=== PATIENT | female | born 1970 | race Caucasian/White ===

== ENCOUNTER 2017-12-20 16:21 | Emergency (ER) | payer OTHER ==
[2017-12-20] MEDS ORDERED: ONDANSETRON DISINTEGRATING 4 MG TAB PO ONE (16:43)
[2017-12-20] MEDS ORDERED: NS 1,000 ML IV ONE (17:05)
[2017-12-20] MEDS ORDERED: METOCLOPRAMIDE 10 MG/2 ML VIAL IVP ONE (17:23)
[2017-12-20] MEDS ORDERED: METOCLOPRAMIDE 10 MG/2 ML VIAL ONE (17:24)
[2017-12-20 17:29] VITALS: BP 147/102
--- NOTE | 2017-12-20 18:20 | EDPHY ---
H & P Time Seen by Provider: 12/20/17 17:01 HPI/ROS: CHIEF COMPLAINT: Headache, dizziness, sinus pain HISTORY OF PRESENT ILLNESS: Patient states she has had a migraine headache secondary to sinus issues for a"long time". She states she has had good relief for her migraines with Botox injections but she has had constant sinus and vertigo for at least urine half if not longer. She states she saw her primary care doctor about 8 days ago and was started on amoxicillin guaifenesin Nasacort. She has been on Nasacort prior but was off it for about a month. She has also been treated for chronic sinus infections with antibiotics in the past. She has seen a neurologist for her vertigo and finds it meclizine does not help. She has not seen in the ENT at any time for these problems however. Today the symptoms are typical of her migraines and sinus issues. She has had no fever. She has had no nausea, vomiting, diarrhea. She does have some shortness of breath secondary to sinus drainage at times but no significant cough. No numbness, weakness. REVIEW OF SYSTEMS: Constitutional: No fever, no chills. Eyes: No discharge. ENT: No sore throat. Cardiovascular: No chest pain, no palpitations. Respiratory: No cough, no shortness of breath. Gastrointestinal: No abdominal pain, no vomiting. Genitourinary: No dysuria. Musculoskeletal: No back pain. Skin: No rashes. Neurological: Headache, dizziness. General Appearance: Alert, no distress. Eyes: Pupils equal and round no pallor or injection. ENT, Mouth: Mucous membranes moist. Respiratory: There are no retractions, lungs are clear to auscultation. Cardiovascular: Regular rate and rhythm. Gastrointestinal: Abdomen is soft and nontender, no masses, bowel sounds normal. Neurological: Awake alert, cranial nerves intact, normal strength and sensation to all 4 extremities. Normal reflexes. Skin: Warm and dry, no rashes. Musculoskeletal: Neck is supple nontender. Extremities are symmetrical, full range of motion, no edema. Psychiatric: Patient is oriented X 3, there is no agitation. Medical/surgical history: Celiac disease, . Social history: Denies tobacco or alcohol. Smoking Status: Never smoked Constitutional: Initial Vital Signs Temperature (C) 36.5 C 12/20/17 16:28 Heart Rate 99 12/20/17 16:28 Respiratory Rate 16 12/20/17 16:28 Blood Pressure 167/98 H 12/20/17 16:28 O2 Sat (%) 98 12/20/17 16:28 O2 Delivery Mode Room Air Allergies/Adverse Reactions: ibuprofen Allergy (Verified 12/20/17 16:25) Home Medications: Medication Instructions Recorded Adderall 10 MG (*) 12/20/17 Augmentin 125-31.25 mg/5 ml 12/20/17 Nasacort 12/20/17 guaiFENesin 12/20/17 Medical Decision Making ED Course/Re-evaluation: Patient treated, family back and requesting discharge. Differential Diagnosis: Differential diagnosis includes but is not limited to migraine headache, sinusitis, pseudotumor cerebrai, vertigo, meningitis. After evaluation patient with her chronic symptoms consistent with chronic sinusitis and exacerbation of migraine syndrome. No evidence of infectious process, neurologic deficit, indications for imaging or further treatment. Patient is currently on antibiotics. Strongly recommended she follow up with ENT. Understands return precautions and has PCP follow-up. Stable for discharge. - Data Points Medications Given: Discontinued Medications Diphenhydramine HCl (Benadryl Injection) 50 mg IVP EDNOW ONE Stop: 12/20/17 17:24 Last Admin: 12/20/17 17:28 Dose: 50 mg Sodium Chloride (Ns) 1,000 mls @ 0 mls/hr IV ONCE ONE PRN Reason: Wide Open Stop: 12/20/17 17:06 Last Admin: 12/20/17 17:08 Dose: 1,000 mls Metoclopramide HCl (Reglan Injection) 10 mg IVP EDNOW ONE Stop: 12/20/17 17:24 Last Admin: 12/20/17 17:28 Dose: 10 mg Ondansetron HCl (Zofran Odt) 4 mg PO EDNOW ONE Stop: 12/20/17 16:44 Last Admin: 12/20/17 16:49 Dose: 4 mg Departure - Departure Disposition: Home, Routine, Self-Care Clinical Impression: Migraine Condition: Good Instructions: Migraine Headache (ED) Additional Instructions: Follow up with her primary care physician as discussed for referral to Ear Nose and Throat. Continue your antibiotics as previously prescribed. Return to the emergency department if he developed fever, intractable vomiting, or other concerning new symptoms. Referrals: NONE *PRIMARY CARE P,. [Primary Care Provider] - As per Instructions Jaun Lyon MD [Medical Doctor] - As per Instructions
== END 2017-12-20 18:55 | disposition home or self-care (01) ==
DX: G43.909 Migraine, unspecified, not intractable, without status migrainosus (principal)
CPT/HCPCS: 96374; J1200; J2765

== ENCOUNTER 2018-02-10 15:17 | Emergency (ER) | payer OTHER ==
--- NOTE | 2018-02-10 15:55 | EDPHY ---
H & P Stated Complaint: 9 days of vaginal bleeding - Medical/Surgical History Hx Asthma: Yes Hx Chronic Respiratory Disease: No Hx Diabetes: No Hx Cardiac Disease: No Hx Renal Disease: No Hx Cirrhosis: No Hx Alcoholism: No Hx HIV/AIDS: No Hx Splenectomy or Spleen Trauma: No Other PMH: c section, sinus infection, migraine, fibroids - Social History Smoking Status: Never smoked <Masoud Merino - Last Filed: 02/10/18 16:02> <Shukri Austin - Last Filed: 02/10/18 18:47> Time Seen by Provider: 02/10/18 15:36 HPI/ROS: CHIEF COMPLAINT: Abdominal pain, vaginal cramping HISTORY OF PRESENT ILLNESS: 47-year-old female history of uterine fibroids complaining of 9 days of vaginal bleeding, passage of clots with complaints of lower abdominal pain, right greater than left. No nausea or vomiting. Bowel movements normal. No urinary abnormality. No trauma. No fever or chills. Last oral intake was dinner last evening. REVIEW OF SYSTEMS: A ten point review of systems was performed and is negative with the exception of the items mentioned in the HPI PAST MEDICAL & SURGICAL HISTORY: Uterine fibroid. Tubal ligation. SOCIAL HISTORY: Nonsmoker PHYSICAL EXAM (Prior to examination, patient consented to physical exam, hands were washed and my usual and customary physical exam procedures followed) 1) GENERAL: Well-developed, well-nourished, alert and oriented. Appears uncomfortable. 2) HEAD: Normocephalic, atraumatic 3) HEENT: Pupils equal, round, reactive to light bilaterally. Sclera anicteric. 4) NECK: Full range of motion, no meningeal signs. 5) LUNGS: Clear auscultation bilaterally, no wheezes, no rhonchi, no retractions. 6) HEART: Regular rate and rhythm, no murmur, no heave, no gallop. 7) ABDOMEN: Tender to palpation bilateral lower quadrant, right greater than left, negative peritoneal sign, 8) MUSCULOSKELETAL: Moving all extremities, no focal areas of tenderness, no obvious trauma. No peripheral edema or discoloration. 9) BACK: No CVA tenderness, no midline vertebral tenderness, no fluctuance, no step-off, no obvious trauma, no visual or palpable abnormality. 10) SKIN: No rash, no petechiae. 11) Psychiatric: Patient is oriented X 3, there is no agitation. DIFFERENTIAL DIAGNOSIS: My differential diagnosis includes, but is not limited to, acute appendicitis, acute cholecystitis, bowel obstruction, acute pancreatitis, ovarian torsion, ectopic , gastritis and urinary tract infection. The patient understands that this diagnosis is provisional and can never be 100% accurate. This is a partial list of diagnoses considered. These considerations are based on history, physical exam, past history and reassessment. (Masoud Merino) Constitutional: Initial Vital Signs Temperature (C) 36.8 C 02/10/18 15:20 Heart Rate 105 H 02/10/18 15:20 Respiratory Rate 18 02/10/18 15:20 Blood Pressure 172/90 H 02/10/18 15:20 O2 Sat (%) 100 02/10/18 15:20 O2 Delivery Mode Room Air Allergies/Adverse Reactions: ibuprofen Allergy (Verified 02/10/18 15:20) Home Medications: Medication Instructions Recorded Adderall 10 MG (*) 12/20/17 Augmentin 125-31.25 mg/5 ml 12/20/17 Nasacort 12/20/17 guaiFENesin 12/20/17 Hydrocodone/APAP 5/325 [[employer] 1 - 2 tab PO Q4H PRN #10 tab 02/10/18 5/325 (RX)] Medical Decision Making <Masoud Merino - Last Filed: 02/10/18 16:02> - Diagnostics Imaging: Discussed imaging studies w/ call center rn Radiologist <Shukri Austin - Last Filed: 02/10/18 18:47> - Diagnostics Imaging Results: Imaging Impressions Abdomen Ultrasound 02/10/18 15:52 Impression: No sonographic findings to support a clinical diagnosis of acute appendicitis. Ultrasound Pelvis Complete (Transabdominal and Endovaginal) History: Lower abdominal and pelvic pain in a 47-year-old female.. Technique: Transabdominal and endovaginal ultrasound images were obtained. Endovaginal images obtained for better evaluation of the uterine myometrium and adnexa. Color and pulsed doppler was performed to assess flow. Findings: The uterus is prominently enlarged measuring 17.2 x 11.1 x 7.9 cm. Multiple large rounded areas of heterogeneous echogenicity are seen, consistent with multiple uterine fibroids. One exophytic fibroid eccentric to the right measures 7 cm in diameter, and correlates to the patient's area of pain. Flow is documented to both ovaries. There is a small amount of fluid seen in the cul-de-sac. Impression: 1. Prominently enlarged fibroid uterus. If symptomatology is persistent, fibroid embolization could be considered. Pelvic MRI would be suggested for pretreatment assessment. 2. Exophytic fibroid to the right accounts for an area of symptomatology. 3. See above report for additional findings. Results called and discussed with Jaun Merino PA-C on February 10, 2018 at 1720 hours . Pelvic/Renal Ultrasound 02/10/18 15:52 Impression: No sonographic findings to support a clinical diagnosis of acute appendicitis. Ultrasound Pelvis Complete (Transabdominal and Endovaginal) History: Lower abdominal and pelvic pain in a 47-year-old female.. Technique: Transabdominal and endovaginal ultrasound images were obtained. Endovaginal images obtained for better evaluation of the uterine myometrium and adnexa. Color and pulsed doppler was performed to assess flow. Findings: The uterus is prominently enlarged measuring 17.2 x 11.1 x 7.9 cm. Multiple large rounded areas of heterogeneous echogenicity are seen, consistent with multiple uterine fibroids. One exophytic fibroid eccentric to the right measures 7 cm in diameter, and correlates to the patient's area of pain. Flow is documented to both ovaries. There is a small amount of fluid seen in the cul-de-sac. Impression: 1. Prominently enlarged fibroid uterus. If symptomatology is persistent, fibroid embolization could be considered. Pelvic MRI would be suggested for pretreatment assessment. 2. Exophytic fibroid to the right accounts for an area of symptomatology. 3. See above report for additional findings. Results called and discussed with Jaun Merino PA-C on February 10, 2018 at 1720 hours . Procedures: With ultrasound guidance I placed a 18 gauge IV in her left IJ. The patient tolerated this well. It is not a central line. (Shukri Austin) ED Course/Re-evaluation: 3:54 p.m.: Patient is tender to palpation bilateral lower quadrant right greater than left. Acute appendicitis included in the differential. Will obtain laboratory studies, ultrasound and re-evaluate. I saw this patient independently based on established practice protocols. Care of patient under supervision of secondary supervising physician Dr Austin with whom I discussed case. (Masoud Merino) 5:30 p.m. I discussed the case with Dr. Rosalia Saavedra who agrees with plan to discharge with pain control follow-up in the office in the next few days to discuss hysterectomy. The patient's pain is currently controlled. I will prescribe her Vicodin to take at home of also encouraged iron for because she is slightly anemic. Her bleeding is slowing. (Shukri Austin) Differential Diagnosis: Partial list of the Differential diagnosis considered include but were not limited to; fibroids, ovarian cyst, appendicitis and although unlikely based on the history and physical exam, I also considered , torsion. I discussed these differential diagnoses and the plan with the patient as well as the usual and expected course. The patient understands that the diagnosis is provisional and that in medicine we are not always correct and that further workup is often warranted. Usual and customary warnings were given. All of the patient's questions were answered. The patient was instructed to return to the emergency department should the symptoms at all worsen or return, otherwise to followup with the physician as we discussed. (Shukri Austin) - Data Points Laboratory Results: Laboratory Results 02/10/18 16:30 02/10/18 16:30 02/10/1818 02/10/18 17:06 16:30 16:30 WBC RBC Hgb Hct MCV MCH MCHC RDW Plt Count MPV Neut % (Auto) Lymph % (Auto) [place] % (Auto) Eos % (Auto) Baso % (Auto) Nucleat RBC Rel Count Absolute Neuts (auto) Absolute Lymphs (auto) Absolute Monos (auto) Absolute Eos (auto) Absolute Basos (auto) Absolute Nucleated RBC Immature Gran % Immature Gran # PT INR APTT Sodium 140 mEq/L mEq/L (135-145) Potassium 3.7 mEq/L mEq/L (3.3-5.0) Chloride 107 mEq/L mEq/L (97-110) Carbon Dioxide 23 mEq/l mEq/l (22-31) Anion Gap 10 mEq/L mEq/L (8-16) BUN 8 mg/dL mg/dL (7-23) Creatinine 0.9 mg/dL mg/dL (0.6-1.0) Estimated GFR > 60 Glucose 100 mg/dL mg/dL (70-100) Calcium 9.1 mg/dL mg/dL (8.5-10.4) Beta HCG, Qual NEGATIVE Urine Color YELLOW Urine Appearance HAZY Urine pH 5.0 (5.0-7.5) Ur Specific [place] 1.013 (1.002-1.030) Urine Protein 2+ H (NEGATIVE) Urine Ketones NEGATIVE (NEGATIVE) Urine Blood 3+ H (NEGATIVE) Urine Nitrate NEGATIVE (NEGATIVE) Urine Bilirubin NEGATIVE (NEGATIVE) Urine Urobilinogen NEGATIVE EU EU (0.2-1.0) Ur Leukocyte Esterase NEGATIVE (NEGATIVE) Urine RBC 50-182 /hpf H /hpf (0-3) Urine WBC 10-15 /hpf H /hpf (0-3) Ur Epithelial Cells 1+ /lpf /lpf (NONE-1+) Urine Mucus TRACE /lpf /lpf (NONE-1+) Urine Glucose NEGATIVE (NEGATIVE) 02/10/18 02/10/18 16:30 16:30 WBC 11.93 10^3/uL H 10^3/uL (3.80-9.50) RBC 4.37 10^6/uL 10^6/uL (4.18-5.33) Hgb 9.9 g/dL L g/dL (12.6-16.3) Hct 31.8 % L % (38.0-47.0) MCV 72.8 fL L fL (81.5-99.8) MCH 22.7 pg L pg (27.9-34.1) MCHC 31.1 g/dL L g/dL (32.4-36.7) RDW 14.9 % % (11.5-15.2) Plt Count 360 10^3/uL 10^3/uL (150-400) MPV 9.8 fL fL (8.7-11.7) Neut % (Auto) 75.2 % H % (39.3-74.2) Lymph % (Auto) 16.8 % % (15.0-45.0) [place] % (Auto) 6.6 % % (4.5-13.0) Eos % (Auto) 0.8 % % (0.6-7.6) Baso % (Auto) 0.3 % % (0.3-1.7) Nucleat RBC Rel Count 0.0 % % (0.0-0.2) Absolute Neuts (auto) 8.95 10^3/uL H 10^3/uL (1.70-6.50) Absolute Lymphs (auto) 2.01 10^3/uL 10^3/uL (1.00-3.00) Absolute Monos (auto) 0.79 10^3/uL 10^3/uL (0.30-0.80) Absolute Eos (auto) 0.10 10^3/uL 10^3/uL (0.03-0.40) Absolute Basos (auto) 0.04 10^3/uL 10^3/uL (0.02-0.10) Absolute Nucleated RBC 0.00 10^3/uL 10^3/uL (0-0.01) Immature Gran % 0.3 % % (0.0-1.1) Immature Gran # 0.04 10^3/uL 10^3/uL (0.00-0.10) PT 13.9 SEC SEC (12.0-15.0) INR 1.05 (0.83-1.16) APTT 30.2 SEC SEC (23.0-38.0) Sodium Potassium Chloride Carbon Dioxide Anion Gap BUN Creatinine Estimated GFR Glucose Calcium Beta HCG, Qual Urine Color Urine Appearance Urine pH Ur Specific [place] Urine Protein Urine Ketones Urine Blood Urine Nitrate Urine Bilirubin Urine Urobilinogen Ur Leukocyte Esterase Urine RBC Urine WBC Ur Epithelial Cells Urine Mucus Urine Glucose Medications Given: Discontinued Medications Hydromorphone HCl (Dilaudid) 0.5 mg IVP EDNOW ONE Stop: 02/10/18 17:36 Last Admin: 02/10/18 17:51 Dose: 0.5 mg Sodium Chloride (Ns) 1,000 mls @ 0 mls/hr IV ONCE ONE; Wide Open PRN Reason: Protocol Stop: 02/10/18 16:29 Last Admin: 02/10/18 16:30 Dose: 1,000 mls Ketorolac Tromethamine (Toradol) 30 mg IVP EDNOW ONE Stop: 02/10/18 17:36 Last Admin: 02/10/18 17:51 Dose: 30 mg Ondansetron HCl (Zofran) 4 mg IVP EDNOW ONE Stop: 02/10/18 16:29 Last Admin: 02/10/18 16:29 Dose: 4 mg Departure <Masoud Merino - Last Filed: 02/10/18 16:02> <Shukri Austin - Last Filed: 02/10/18 18:47> - Departure Disposition: Home, Routine, Self-Care Clinical Impression: Fibroid (bleeding) (uterine) Qualifiers: Uterine leiomyoma location: unspecified location Qualified Code(s): D25.9 - Leiomyoma of uterus, unspecified Condition: Fair Instructions: Hysterectomy (DC) Additional Instructions: Continue to take iron for anemia, if you resume bleeding heavily or feel lightheaded return to the ER. Referrals: Rosalia Saavedra MD [Medical Doctor] - 1-2 days without fail Wing Mckoy [Primary Care Provider] - As per Instructions Prescriptions: Hydrocodone/APAP 5/325 [[employer] 5/325 (RX)] 1 - 2 tab PO Q4H PRN #10 tab PRN Reason: Pain, Moderate
[2018-02-10] MEDS ORDERED: ONDANSETRON 4 MG/2 ML VIAL ONE (16:25)
[2018-02-10] MEDS ORDERED: NS 1,000 ML IV ONE (16:28)
[2018-02-10] MEDS ORDERED: ONDANSETRON 4 MG/2 ML VIAL IVP ONE (16:28)
[2018-02-10 16:58] LABS: PLATELET COUNT 360 10^3/uL (150-400)
[2018-02-10 17:34] LABS: INR 1.05 (0.83-1.16); PROTIME(PATIENT) 13.9 SEC (12.0-15.0)
[2018-02-10] MEDS ORDERED: HYDROmorphONE/DILAUDID 2 MG/ML INJ IVP ONE (17:35)
[2018-02-10] MEDS ORDERED: KETOROLAC 30 MG/1 ML SDV IVP ONE (17:35)
[2018-02-10] MEDS ORDERED: HYDROmorphONE/DILAUDID 1 MG/ML INJ ONE (17:47)
[2018-02-10 18:06] VITALS: BP 116/57
== END 2018-02-10 18:46 | disposition home or self-care (01) ==
DX: D25.9 Leiomyoma of uterus, unspecified (principal); J45.909 Unspecified asthma, uncomplicated; E86.9 Volume depletion, unspecified
CPT/HCPCS: 96374; J1170; J1885; J2405

== ENCOUNTER 2018-02-19 09:49 | Inpatient (IN) | payer OTHER ==
--- NOTE | 2018-02-18 19:29 | GHP ---
[f rep st] PREOP HISTORY AND PHYSICAL DATE OF ADMISSION: 02/19/2018 DATE OF PLANNED PROCEDURE: 02/19/2018. PLANNED PROCEDURE: Total abdominal hysterectomy with bilateral salpingectomy. INDICATIONS: Patient is a 47-year-old, 7, para 3-0-4-3, who initially presented to the emergency room on 02/10/2018, for abdominal pain. Patient has a known history of fibroids. She had last had an ultrasound several years ago, which showed multiple fibroids, all measuring 2 to 3 cm. 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 Patient states her periods have been getting progressively worse. They are primarily monthly, however, some months are very heavy with large clots. Patient has been bleeding for the last 10 days and seems to be really heavy, but may be slowing down. She has complained of low energy and fatigue and body aches. She presented to the emergency room and was found to have a 17 cm uterus with an exophytic fibroid on the right measuring 7 cm in diameter. Patient states the area where this right fibroid is, is where most of her pain is. Patient is requesting definitive therapy. We discussed management options of uterine artery embolization, but due to the size and the level of discomfort she is having, we recommend pathology with hysterectomy. Patient also asked about myomectomy. We discussed the risk of recurrent fibroids and patient has elected to proceed with a total abdominal hysterectomy. We discussed the potential of malignant versus benign fibroids. There are no suspicious findings on the MRI to suggest abnormal findings. We will proceed with a total abdominal hysterectomy. If any abnormal pathology is found, patient will need to follow up with Gynecological Oncology. An endometrial biopsy was performed which was benign. MEDICAL HISTORY: Significant for celiac disease, allergies, eczema, migraines with aura, anemia secondary to dysfunctional uterine bleeding, urinary incontinence recently due to the fibroid uterus, and an allergy-induced asthma. MEDICATIONS: Adderall SURGICAL HISTORY: Oral surgery for wisdom tooth extraction, section x3 , breast reduction, tubal ligation. ALLERGIES: Ibuprofen. SOCIAL HISTORY: Patient is . She denies tobacco or drug use. She does drink alcohol socially less than 1 a week. FAMILY MEDICAL HISTORY: Noncontributory. 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 Periods have been monthly, lasting 4 to 5 days and are very heavy until recently where she has been bleeding for 10 days and are extremely heavy. Patient denies any history of any abnormal Pap smears or sexually transmitted diseases. Her recent Pap smear is up to date and was normal. She has a recent mammogram; last mammogram was in 03/2016. PHYSICAL EXAMINATION: VITAL SIGNS: Stable. GENERAL APPEARANCE: Alert and oriented x3. PSYCHIATRIC: Appropriate affect. MUSCULOSKELETAL: Grossly intact. NEUROLOGIC: Grossly intact. NECK: Mobile and supple. HEART: Rate is irregularly irregular. LUNGS: Clear to auscultation bilaterally. ABDOMEN: Soft, nondistended, but she does have uterus that palpates up at the umbilicus. EXTREMITIES: Reveal no calf tenderness or edema. PELVIC: Reveals an enlarged fibroid uterus which was not mobile within her pelvis, but is mobile up at the fundus. Pelvic ultrasound and MRI showed a 17 x 2 x 11.1 x 7.9 cm uterus with enlarged fibroid uterus with an exophytic fibroid on the right measuring 7 cm. Ovaries were within normal limits. REVIEW OF SYSTEMS: 10-point review of systems is negative with the exception of above-mentioned pertinent positives, and the patient does have fatigue and pelvic pressure and occasional incontinence due to the fibroid uterus. She also has dysfunctional uterine bleeding and menorrhagia. ASSESSMENT AND PLAN: 47-year-old, 7, para 3-0-4-3 with a large symptomatic fibroid uterus who requests definitive therapy with total abdominal hysterectomy with bilateral salpingectomy, possible oophorectomy, additional procedures as indicated. Risks and benefits have been extensively reviewed with the patient and patient has been properly consented. /[id number]/MODL MTDD
--- NOTE | 2018-02-19 09:01 | PDANEPAE ---
ANE History of Present Illness ALEK ANE Past Medical History - Pulmonary History Hx Asthma/Reactive Airway Disease: Yes Hx Oxygen in Use at Home: No - Endocrine History Hx Diabetes: No - Other Health History Other Health History: fibroid uterus with DUB ANE Review of Systems Review of systems is: negative Review of Systems: - Exercise capacity METS (RN): 4 METS ANE Patient History - Allergies Allergies/Adverse Reactions: ibuprofen Allergy (Verified 02/19/18 10:10) - Home Medications Home medications: home medication list seen and reviewed Home Medications: Adderall 10 MG (*) 12/20/17 [Last Taken 02/18/18] guaiFENesin 12/20/17 [Last Taken Unknown] - NPO status NPO Status: no food or drink >8 hours - Anes Hx Anes Hx: no prior problems - Smoking Hx Smoking Status: Never smoked - Family Anes Hx Family Anes Hx: none ANE Labs/Vital Signs - Vital Signs Vital Signs: reviewed preoperatively; see RN documention for details ANE Physical Exam - Airway Neck exam: FROM Mallampati Score: Class 2 Mouth exam: normal dental/mouth exam - Pulmonary Pulmonary: no respiratory distress - Cardiovascular Cardiovascular: regular rate and rhythym - ASA Status ASA Status: II ANE Anesthesia Plan Anesthesia Plan: general endotracheal anesthesia, spinal (spinal morphine for post op pain)
[2018-02-19] MEDS ORDERED: ceFAZolin 2 GM/SWFI 2 GM/20 ML SYR IVP ONE (09:55)
[2018-02-19] MEDS ORDERED: LR 1,000 ML IV ONE (09:57)
[2018-02-19] MEDS ORDERED: LIDOCAINE 1% 2 ML INJ ID PRN (09:57)
[2018-02-19] MEDS ORDERED: ceFAZolin 2 GM/DEXTROSE 100 ML IV ONE ×2 (10:30)
[2018-02-19] MEDS ORDERED: MIDAZOLAM 2 MG/2 ML VIAL IVP ONE (10:39)
[2018-02-19] MEDS ORDERED: MIDAZOLAM 2 MG/2 ML VIAL ONE (10:45)
[2018-02-19] MEDS ORDERED: BUPIVACAINE/EPI 0.5% 30 ML SDV ONE (10:55)
[2018-02-19] MEDS ORDERED: ROCURONIUM 50 MG/5 ML VIAL ONE (10:57)
[2018-02-19] MEDS ORDERED: DEXAMETHASONE 4 MG/ML VIAL ONE (10:57)
[2018-02-19] MEDS ORDERED: fentaNYL 100 MCG/2 ML INJ ONE ×2 (10:57→13:58)
[2018-02-19] MEDS ORDERED: LIDOCAINE 2% 100 MG/5 ML SYR ONE (10:57)
[2018-02-19] MEDS ORDERED: PROPOFOL 200 MG/20 ML VIAL ONE ×2 (10:57→12:01)
[2018-02-19] MEDS ORDERED: ONDANSETRON 4 MG/2 ML VIAL ONE (10:57)
[2018-02-19] MEDS ORDERED: morphINE PF 5 MG/10 ML INJ ONE (11:00)
[2018-02-19] MEDS ORDERED: ALBUTEROL 3 ML DEYVIAL IH PRN (12:32)
[2018-02-19] MEDS ORDERED: HYDROCODONE/APAP 5/325 TAB PO PRN (12:32)
[2018-02-19] MEDS ORDERED: PROMETHAZINE HCL 25 MG/ML INJ IVP PRN (12:32)
[2018-02-19] MEDS ORDERED: ACETAMINOPHEN 500 MG TAB PO PRN (12:32)
[2018-02-19] MEDS ORDERED: MEPERIDINE 25 MG/0.5 ML AMP IVP PRN (12:32)
[2018-02-19] MEDS ORDERED: ONDANSETRON 4 MG/2 ML VIAL IVP PRN ×2 (12:32→13:35)
[2018-02-19] MEDS ORDERED: oxyCODONE IR 5 MG TAB PO PRN (12:32)
[2018-02-19] MEDS ORDERED: NALOXONE HCL 0.4 MG/ML INJ IVP PRN (12:32)
[2018-02-19] MEDS ORDERED: DEXAMETHASONE 4 MG/ML VIAL IVP PRN (12:32)
--- NOTE | 2018-02-19 12:34 | POSTANESTH ---
Post Anesthetic Evaluation Cardiovascular Status: Normal, Stable, Similar to Pre-Op Cond Respiratory Status: Normal, Stable, Similar to Pre-op Cond. Level of Consciousness/Mental Status: Can Participate in Eval, Mildly Sleepy, Arousable Pain Control: Adequate, Prn Tx Ordered Nausea/Vomiting Control: Adequate, Prn Tx Ordered Complications Possibly Related to Anesthesia: None Noted
[2018-02-19] MEDS: fentaNYL 100 MCG/2 ML INJ IVP PRN ×2 (14:00→14:13)
[2018-02-19] MEDS ORDERED: LR 1,000 ML IV SCH (14:00)
[2018-02-19] MEDS ORDERED: HYDROmorphONE/DILAUDID 1 MG/ML INJ ONE (14:15)
[2018-02-19] MEDS: HYDROmorphONE/DILAUDID 1 MG/ML INJ IVP PRN ×3 (14:19→14:55)
--- NOTE | 2018-02-19 14:55 | GOP ---
[f rep st] OPERATIVE REPORT DATE OF OPERATION: 02/19/2018 SURGEON: Claudine Driscoll DO TRAMPOLINE TEAM COACH: Harrison Vidales MD ANESTHESIA: Spinal with general. ANESTHESIOLOGIST: Ayan Menjivar MD PREOPERATIVE DIAGNOSIS: Symptomatic fibroid uterus. POSTOPERATIVE DIAGNOSIS: Symptomatic fibroid uterus, plus extensive adhesions. PROCEDURE PERFORMED: Total abdominal hysterectomy with bilateral salpingectomy and lysis of adhesion s. FINDINGS: Enlarged fibroid uterus above the umbilicus, well suspended within the pelvis. Normal ova apollo, tubes, status post tubal ligation. Dense adhesions between the anterior abdominal wall, uterus , bladder, and lower uterine segment. SPECIMENS: Uterus and bilateral fallopian tubes. ESTIMATED BLOOD LOSS: 200 cc. INDICATIONS: Patient is a 47-year-old 5, para 3-0-2-3 who has a longstanding history of heav y periods and a growing fibroid uterus. Management options have been reviewed with the patient and d ecision was made to proceed with a total abdominal hysterectomy with bilateral salpingectomy. Risks and benefits of the procedure were reviewed with the patient, and the patient has been properly conse nted. DESCRIPTION OF PROCEDURE: Patient was taken to the operating room with 2 g [address] in [address]. She w as then seated on the operating room table where spinal anesthesia was obtained. She was then reposi tioned into the dorsal supine position where general anesthesia was obtained. A Smart catheter was t hen placed. Venodynes were placed on her lower extremities and she was then prepped and draped in th e normal sterile fashion. A Pfannenstiel skin incision was then made 2 fingerbreadths above the pubic symphysis. The incision was then carried through to the underlying layer of fascia with the Bovie. The fascia was then nicke d in the midline and the fascial incision was extended laterally. The superior aspect of the fascial incision was then grasped with Ivonne, tented up and the underlying rectus muscle dissected off blun tly and with the Bovie. Several areas of previous adhesions from her previous sections were bleeding and hemostasis was achieved. Attention was then turned to the inferior aspect of the fascial incision, which in a similar fashion was grasped with Ivonne's, tented up and the underlying rectus muscle dissected off bluntly and with the Bovie. The rectus muscle was then in the midline. The peritoneum was then identified and entered sharply up near the umbilicus. A finger was inserted to feel for any adhesions. There w ere omental adhesions noted to the anterior abdominal wall and dense adhesion between the anterior hernandes rface of the uterus and the anterior abdominal wall. These were carefully dissected off with the Lig aSure and Metzenbaum scissors. This added an additional 45 minutes to the case due to the extensive adhesions and the close proximity to the bladder. Once the adhesions were mobilized, the peritoneal defect was extended superiorly and inferiorly and t he uterus was then exteriorized. The utero-ovarian ligaments were then clamped and transected with t he LigaSure on the right side. The broad ligaments were then clamped, transected with the LigaSure a s well, and the round ligaments were clamped, transected with the LigaSure. Attention was then turned to the patient's contralateral side and the utero-ovarian ligaments, broad ligaments, and round ligaments were then clamped and transected in the similar fashion with the LigaS ure. The broad ligaments were dissected. The bladder was dissected off the lower uterine segment, c arefully again due to dense adhesions, and then, once a good plane was discovered, the bladder was ab le to be dissected remotely away from the lower uterine segment. The uterine arteries were skeletoni zed and doubly clamped and transected with the LigaSure. The cardinal ligaments and additional branc hes of the uterine arteries were then doubly clamped, transected, and suture ligated with 0 Vicryl hernandes ture. Due to the bulbous nature of the uterus, the uterus was then transected at the isthmic junction and a supracervical hysterectomy was performed, and the specimen was handed off to allow for better visual ization. A retractor was then placed in the patient's abdomen and the bowel was packed away. The bl adder again remained remote from the operative site. Straight Thomas clamps were used to doubly clam p and transect the uterosacral ligaments. The remainder of the cardinal ligaments. Curved Thomas's were used to clamp across the apex of the vagina underneath the cervix. Feliciano scissors were then used to amputate the uterus from the top of the vagina. An 0 Vicryl sutures were used to close the vaginal cuff in an interrupted [id number] fashion. Hemostasis was assured. The pelvic sidewall s were found to be hemostatic. The pelvis was irrigated and the cuff and the sidewall was hemostatic . Bilateral salpingectomy was then performed with the LigaSure and bilateral ovaries were unremarkab le. The instruments were then removed from the patient's abdomen. Due to the bleeding that had previousl y happened with the muscle, the muscle was not reapproximated. The peritoneum was not reapproximated either. 0 Vicryl suture was used to close the fascia in a running fashion. The subcutaneous tissue was irrigated and found to be hemostatic. Silke's tissue was reapproximated with 2-0 Vicryl in a r unning fashion. Subcuticular fascia was closed with 4-0 Monocryl in a running subcuticular fashion. Sponge, lap, and needle count were correct x2. Patient was transported to recovery room in stable c ondition. /[id number]/MODL
--- NOTE | 2018-02-19 16:25 | PDMN ---
Medical Necessity Medical necessity: IP only surgery, cpt 21346; [facility] [place] S-650 Total Hysterectomy w/ bilateral salpingectomy & lysis of adhesions
[2018-02-19] MEDS: HYDROCODONE/APAP 5/325 TAB PO PRN ×2 (20:10→21:40)
[2018-02-20] MEDS: HYDROCODONE/APAP 5/325 TAB PO PRN ×5 (01:38→17:09)
[2018-02-20] MEDS ORDERED: MAGNESIUM HYDROXIDE 30 ML UDCUP PO PRN (17:40)
[2018-02-20] MEDS ORDERED: BISACODYL 10 MG SUPP PR PRN (17:40)
[2018-02-20] MEDS ORDERED: LACTULOSE 20 GM/30 ML UDCUP PO PRN (17:40)
--- NOTE | 2018-02-20 17:45 | SOAPPROG ---
SOAP Progress Note Assessment/Plan: Assessment: p3 pod# 1 s/p ALEK BS for symptomatic fibroids anemia pain control issues Plan: iron add oxy ir increase activity bowel protocol florentino catherine pad 02/20/18 17:42 Subjective: patient is doing well except is having some pain control issues. had a history of shortness of breath with ibuprofen years ago so no ibuprofen was ordered. patient thinks she did well with toradol in the past but due to possible allergy we will not use toradol. reaching max tylenol dose for the day so will add in oxy ir. will add bowel protocol. ambulating. took shower. passing gas. having shoulder pain - referred from irritation of diaphragm. good o2 saturation. tolerating diet. reviewed surgical findings. wants to go home tomorrow if pain better controlled. Objective: Vital Signs Temp Pulse Resp BP Pulse Ox 36.4 C 66 18 100/65 95 02/20/18 15:37 02/20/18 15:37 02/20/18 15:37 02/20/18 15:37 02/20/18 15:37 Laboratory Results 02/20/18 05:40 02/19/18 02/20/18 02/21/18 05:59 05:59 05:59 Intake Total 2750 200 Output Total 2000 850 Balance 750 -650 Physical Exam - Physical Exam General Appearance: WD/WN, alert, no apparent distress Neck: non-tender, full range of motion Respiratory: chest non-tender, lungs clear, normal breath sounds Cardiac/Chest: normal peripheral pulses, regular rate, rhythm Abdomen: normal bowel sounds, non-tender, soft Skin: normal color, warm/dry, other (incision covered) Extremities: normal range of motion, non-tender, normal inspection, normal capillary refill Neuro/Psych: no motor/sensory deficits, alert, normal mood/affect, oriented x 3 ICD10 Worksheet Patient Problems: Problems Problem Status Onset Fibroids Acute
[2018-02-20] MEDS: SIMETHICONE 80 MG TAB CHEW PO SCH ×2 (18:18→21:10)
[2018-02-20] MEDS: POLYETHYLENE GLYCOL 3350 17 GM PKT PO PRN (18:21)
[2018-02-20] MEDS: oxyCODONE IR 5 MG TAB PO PRN (21:11)
[2018-02-20] MEDS: SENNOSIDES/DOCUSATE SODIUM TAB PO SCH (21:11)
[2018-02-21] MEDS: oxyCODONE IR 5 MG TAB PO PRN ×4 (01:11→15:03)
[2018-02-21 10:10] VITALS: BP 102/67
[2018-02-21] MEDS: SIMETHICONE 80 MG TAB CHEW PO SCH ×2 (10:18→15:03)
[2018-02-21] MEDS: SENNOSIDES/DOCUSATE SODIUM TAB PO SCH (10:18)
[2018-02-21] MEDS: POLYETHYLENE GLYCOL 3350 17 GM PKT PO PRN (11:27)
[2018-02-21] MEDS: HYDROCODONE/APAP 5/325 TAB PO PRN (12:04)
[2018-02-21] MEDS ORDERED: OXYCODONE/APAP 5/325 TAB PO PRN (15:08)
--- NOTE | 2018-02-21 15:11 | SOAPPROG ---
SOAP Progress Note Assessment/Plan: Assessment: p3 pod#2 s/p ALEK BS for symptomatic fibroids anemia pain control issues Plan: iron change to percocet and oxy ir discharge instructions 02/21/18 15:09 Subjective: patient is doing well. still having some issues controlling pain but is not a candidate for ibuprofen. previously has done well on percocet so will change to that. doing well with oxy ir. passing gas. has not had a bowel movement yet. voiding without difficulty. no vaginal bleeding. ambulating. Objective: Vital Signs Temp Pulse Resp BP Pulse Ox 36.8 C 78 18 102/67 90 L 02/21/18 10:08 02/21/18 10:08 02/21/18 10:08 02/21/18 10:08 02/21/18 10:08 Laboratory Results 02/20/18 05:40 02/20/18 02/21/18 02/22/18 05:59 05:59 05:59 Intake Total 2750 1075 Output Total 2000 1150 Balance 750 -75 Physical Exam - Physical Exam General Appearance: WD/WN, alert, no apparent distress Neck: non-tender, full range of motion Respiratory: chest non-tender, lungs clear, normal breath sounds Cardiac/Chest: normal peripheral pulses, regular rate, rhythm Abdomen: normal bowel sounds, non-tender, soft Skin: normal color, warm/dry, other (incision clean dry and intact) Extremities: normal range of motion, non-tender, normal inspection, normal capillary refill Neuro/Psych: no motor/sensory deficits, alert, normal mood/affect, oriented x 3 ICD10 Worksheet Patient Problems: Problems Problem Status Onset Fibroids Acute
== END 2018-02-21 17:03 | disposition home or self-care (01) | DRG 743 ==
LOC: F3N 09:49 → FOB 15:18
PROVIDERS: ADMIT Obstetrics & Gynecology; ATTEND Obstetrics & Gynecology
PROC: 0UT90ZZ Resection of Uterus, Open Approach (ICD-10-PCS; principal; 2018-02-19 10:15)
PROC: 0UN90ZZ Release Uterus, Open Approach (ICD-10-PCS; principal; 2018-02-19 10:15)
DX: D25.9 Leiomyoma of uterus, unspecified (principal); N73.6 Female pelvic peritoneal adhesions (postinfective)
CPT/HCPCS: J0690; J1100; J1170; J2001; J2250; J2270; J2274; J2405; J2704; J3010